=== PATIENT | female | born 1990 | race Two or more races ===

== ENCOUNTER 2019-12-17 08:59 | Outpatient (CLI) | payer OTHER | END 2019-12-17 09:00 | disposition home or self-care (01) | LOC: RX STUDY 08:59 | PROVIDERS: ATTEND Otolaryngology | DX: R13.19 Other dysphagia (principal) ==

== ENCOUNTER 2024-09-16 15:22 | Emergency (ER) | payer OTHER ==
[~2024-09-16] VITALS: Ht 162.6 cm; Wt 84.4 kg
[2024-09-16] MEDS ORDERED: TOPROL XL25 M1 PO (15:57)
[2024-09-16] MEDS ORDERED: FOLIC ACID0.8 M1 PO (15:57)
[2024-09-16 17:30] LABS: HEMATOCRIT 36.4 % (36.0-45.00); HEMOGLOBIN 11.9 g/dL (12.0-15.00); MEAN CELL VOLUME 71.1 fL (80.00-100.00); MEAN CORPUSCULAR HEMOGLOBIN 23.2 pg (27.00-32.0); MEAN CORPUSCULAR HGB CONC 32.7 g/dl (32.0-36.0); PLATELET COUNT 288 K/uL (150-450); RED BLOOD COUNT 5.12 M/uL (4.00-6.00); RED CELL DISTRIBUTION WIDTH 17.5 % (11.5-14.5)
[2024-09-16] MEDS ORDERED: GILTUSS COUGH-118 M1 PO (19:45)
[2024-09-16] MEDS ORDERED: ACETAMINOPHEN500 M1 PO (19:45)
== END 2024-09-16 20:11 | disposition home or self-care (01) ==
LOC: ER 15:25
PROVIDERS: Preventive Medicine Public Health & General Preventive Medicine
DX: J06.9 Acute upper respiratory infection, unspecified (principal); Z20.822 Contact with and (suspected) exposure to COVID-19; Z88.6 Allergy status to analgesic agent; Z91.013 Allergy to seafood

== ENCOUNTER 2024-09-19 09:57 | Emergency (ER) | payer OTHER ==
[~2024-09-19] VITALS: Ht 162.6 cm; Wt 84.4 kg
[~2024-09-19 09:57] MED LIST: ACETAMINOPHEN500 M1 PO; FOLIC ACID0.8 M1 PO; GILTUSS COUGH-118 M1 PO; TOPROL XL25 M1 PO
[2024-09-19 14:21] LABS: HEMATOCRIT 38.1 % (36.0-45.00); HEMOGLOBIN 12.3 g/dL (12.0-15.00); MEAN CELL VOLUME 72.6 fL (80.00-100.00); MEAN CORPUSCULAR HEMOGLOBIN 23.4 pg (27.00-32.0); MEAN CORPUSCULAR HGB CONC 32.2 g/dl (32.0-36.0); PLATELET COUNT 252 K/uL (150-450); RED BLOOD COUNT 5.25 M/uL (4.00-6.00); RED CELL DISTRIBUTION WIDTH 17.6 % (11.5-14.5)
[2024-09-19 14:37] LABS: ALBUMIN 3.8 gm/dL (3.4-5.0); BILIRUBIN TOTAL 0.29 mg/dL (0.3-1.2); CALCIUM 9.5 mg/dL (8.5-10.1); CREATININE SERUM 0.63 mg/dL (0.55-1.02); GFR 109.51; GLOBULINA 3.8 G/DL (2.4-3.5); POTASSIUM 3.79 mEq/L (3.5-5.1); TOTAL PROTEIN 7.6 gm/dL (6.4-8.2)
[2024-09-19] MEDS ORDERED: IBU600 MG PO (16:39)
[2024-09-19] MEDS ORDERED: AMOX-CLAV 875-1 EACH PO (16:39)
== END 2024-09-19 16:49 | disposition home or self-care (01) ==
LOC: ER 10:00
PROVIDERS: Preventive Medicine Public Health & General Preventive Medicine
DX: R51.9 Headache, unspecified (principal); Z88.6 Allergy status to analgesic agent; Z91.013 Allergy to seafood; I49.8 Other specified cardiac arrhythmias

== ENCOUNTER 2025-07-10 22:45 | Emergency (ER) | payer OTHER ==
[~2025-07-10] VITALS: Ht 162.6 cm; Wt 88.9 kg
[~2025-07-10 22:45] MED LIST changes: +AMOX-CLAV 875-1 EACH PO; +IBU600 MG PO
[2025-07-11] MEDS ORDERED: METHYLPREDNISOLONE SOD SUCC 125 MG VIAL IM STA (01:01)
[2025-07-11] MEDS ORDERED: FAMOTIDINE/PF 20 MG/2 ML VIAL IV STA (01:02)
[2025-07-11] MEDS ORDERED: CEFTRIAXONE SODIUM 1,000 MG VIAL IM STA (01:02)
[2025-07-11] MEDS ORDERED: KETOROLAC TROMETHAMINE 60 MG VIAL IM STA (01:03)
[2025-07-11] MEDS ORDERED: DICYCLOMINE HCL 20 MG TABLET PO STA (02:11)
[2025-07-11 02:42] LABS: URINE APPEARANCE Clear; URINE BILIRRUBIN Negative (NEGATIVE); URINE BLOOD Negative; URINE COLOR Yellow; URINE GLUCOSE Negative (NEGATIVE); URINE KETONE Negative (NEGATIVE); URINE LEUKOCYTE Negative; URINE NITRATE Negative; URINE PROTEIN Negative (NEGATIVE); URINE UROBILINOGEN 1.0 E.U./dl
[2025-07-11 02:43] LABS: URINE BACTERIA 181.8 uL (0.0-1933); URINE EPITHELIAL CELLS 15.4 uL (0.0-38.8); URINE RBC 3.6 uL (0.0-20.8); URINE WBC 3.8 uL (0.0-23.2)
[2025-07-11 02:51] LABS: URINE CAST 0.00 uL (0.0-1.40)
[2025-07-11 02:54] LABS: BUN CREA RATIO 23.0 (7.0-25.0); CREATININE SERUM 0.47 mg/dL (0.55-1.02); GFR 152.61; GLUCOSE FASTING 89.0 mg/dL (65-100); OSMOLALITY SERUM 282.0 MOSM/KG (275-295)
[2025-07-11] MEDS ORDERED: DEXAMETHASONE 4 MG TABLET PO STA (04:34)
[2025-07-11 04:40] LABS: COVID-19 AG NEGATIVE (NEGATIVE)
[2025-07-11] MEDS ORDERED: DEXAMETHASONE SODIUM PHOSPHATE 4 MG/ML VIAL IM STA (05:04)
== END 2025-07-11 05:38 | disposition home or self-care (01) ==
LOC: ER 22:46
PROVIDERS: General Practice
DX: J98.8 Other specified respiratory disorders (principal); R10.84 Generalized abdominal pain; Z20.822 Contact with and (suspected) exposure to COVID-19; Z88.8 Allergy status to other drugs, medicaments and biological substances; Z88.6 Allergy status to analgesic agent; Z91.013 Allergy to seafood